=== PATIENT | male | born 1940 | race Caucasian/White ===

== ENCOUNTER 2017-12-01 19:29 | Inpatient (IN) | payer MEDICARE, OTHER ==
[2017-12-01 19:38] LABS: ADD MAN DIFF? NO
[2017-12-01 19:41] LABS: BASOPHIL # 0.1 10^3/ul (0.0-0.1); BASOPHILS % 0.4 % (0.0-2.0); EOSINOPHILS # 0.3 10^3/ul (0.0-0.5); EOSINOPHILS % 2.9 % (0.0-7.0); HEMATOCRIT 45.3 % (42.0-52.0); HEMOGLOBIN 14.3 g/dl (14.0-18.0); LYMPHOCYTES # 2.1 10^3/ul (0.8-2.9); MEAN CORPUSCULAR HEMOGLOBIN 26.4 pg (29.0-33.0); MEAN CORPUSCULAR HGB CONC 31.6 g/dl (32.0-37.0); MEAN CORPUSCULAR VOLUME 83.6 fl (82.0-101.0); MEAN PLATELET VOLUME 10.6 fl (7.4-10.4); MONOCYTE # 1.1 10^3/ul (0.3-0.9); MONOCYTES % 9.4 % (0.0-11.0); NEUTROPHILS % 68.9 % (39.0-77.0); PLATELET COUNT 231 10^3/UL (140-415); RED BLOOD COUNT 5.42 10^6/ul (4.70-6.10); RED CELL DISTRIBUTION WIDTH 16.6 % (11.5-14.5)
[2017-12-01 19:41] LABS: WHITE BLOOD COUNT 11.6 10^3/ul (4.8-10.8)
[2017-12-01] MEDS: MAGNESIUM SULFATE 2 GM/50 ML 50 ML IVPB (19:47)
[2017-12-01] MEDS: ASPIRIN 325 MG TAB PO (19:47)
[2017-12-01 19:59] LABS: ANION GAP 12 (8-16); BLOOD UREA NITROGEN 33 mg/dl (7-20); CALCIUM 8.2 mg/dl (8.4-10.2); CARBON DIOXIDE 22 mmol/L (21-31); CHLORIDE 112 mmol/L (97-110); CREATININE 3.03 mg/dl (0.61-1.24); GLUCOSE 119 mg/dl (70-220); MAGNESIUM 1.7 mg/dl (1.7-2.5); SODIUM 143 mmol/L (135-144)
[2017-12-01 20:06] LABS: POTASSIUM 2.9 mmol/L (3.5-5.1)
[2017-12-01 20:11] LABS: B-TYPE NATRIURETIC PEPTIDE 8260 PG/ML (0-450); TROPONIN-I 0.056 ng/ml (0.000-0.120)
[2017-12-01] MEDS: ALBUTEROL 0.083% (NEB) 2.5 MG/3 ML AMP HHN (20:31)
[2017-12-01] MEDS: POTASSIUM CHLORIDE (SR) 20 MEQ TAB PO ×2 (20:38)
[2017-12-01 20:41] LABS: AADO2 Arterial 594.3 mmHg (7.0-24.0); Arterial Base Excess -1.7 mmol/L (-3.0-3); Arterial Blood Gas Oxygen Sat 93.9 mmHG (95.0-100.0); Arterial COHb 1.4 % (0.0-3.0); Arterial Fraction of Oxyhgb 92.3 % (93.0-99.0); Arterial HCO3 23.7 mmol/L (22.0-26.0); Arterial MetHb 0.3 % (0.0-1.5); Arterial Total Hemglobin 14.9 g/dl (12.0-18.0); Arterial pCO2 42.7 mmhg (35-45); MODE NRM; Site Right Brachial
[2017-12-01] MEDS: FUROSEMIDE 40 MG INJ IV (20:41)
[2017-12-01] MEDS ORDERED: NACL 0.9% 3 ML SYG IV (22:30)
[2017-12-01] MEDS ORDERED: ACETAMINOPHEN 325 MG TAB PO (22:30)
[2017-12-01] MEDS ORDERED: DOCUSATE SODIUM 100 MG CAP PO (22:30)
[2017-12-01] MEDS ORDERED: morphine 2 MG INJ IV (22:30)
[2017-12-01] MEDS ORDERED: ZOLPIDEM 5 MG TAB PO (22:30)
[2017-12-01] MEDS ORDERED: ALBUTEROL/IPRATROPIUM (NEB) 3 ML AMP HHN (22:30)
[2017-12-01] MEDS ORDERED: ONDANSETRON 4 MG INJ IV (22:30)
[2017-12-01] MEDS ORDERED: MAGNESIUM HYDROXIDE 30ML CUP PO (22:30)
[2017-12-02 01:42] LABS: CREATINE KINASE 78 IU/L (23-200)
[2017-12-02 01:54] LABS: CK-MB 0.77 ng/ml (0.0-2.4); TROPONIN-I 0.083 ng/ml (0.000-0.120)
[2017-12-02 07:42] LABS: ADD MAN DIFF? NO
[2017-12-02 07:48] LABS: BASOPHILS % 0.4 % (0.0-2.0); EOSINOPHILS # 0.5 10^3/ul (0.0-0.5); EOSINOPHILS % 5.6 % (0.0-7.0); HEMATOCRIT 44.8 % (42.0-52.0); HEMOGLOBIN 13.9 g/dl (14.0-18.0); LYMPHOCYTES # 1.7 10^3/ul (0.8-2.9); LYMPHOCYTES % 18.8 % (15.0-51.0); MEAN CORPUSCULAR HEMOGLOBIN 26.1 pg (29.0-33.0); MEAN CORPUSCULAR VOLUME 84.2 fl (82.0-101.0); MEAN PLATELET VOLUME 10.1 fl (7.4-10.4); MONOCYTE # 0.9 10^3/ul (0.3-0.9); MONOCYTES % 9.8 % (0.0-11.0); NEUTROPHIL # 5.9 10^3/ul (1.6-7.5); NEUTROPHILS % 65.2 % (39.0-77.0); PLATELET COUNT 208 10^3/UL (140-415); RED BLOOD COUNT 5.32 10^6/ul (4.70-6.10); RED CELL DISTRIBUTION WIDTH 16.3 % (11.5-14.5)
[2017-12-02 07:48] LABS: WHITE BLOOD COUNT 9.1 10^3/ul (4.8-10.8)
[2017-12-02 08:00] LABS: HEMOGLOBIN A1C 6.2 % (0-5.9)
[2017-12-02 08:12] LABS: ANION GAP 11 (8-16); BLOOD UREA NITROGEN 34 mg/dl (7-20); CALCIUM 8.6 mg/dl (8.4-10.2); CARBON DIOXIDE 25 mmol/L (21-31); CHLORIDE 112 mmol/L (97-110); CHOL/HDL RATIO 3.1 RATIO; CHOLESTEROL 94 mg/dl (100-200); CREATININE 2.79 mg/dl (0.61-1.24); GLUCOSE 92 mg/dl (70-220); HDL CHOLESTEROL 30 mg/dl (31-75); LDL CHOLESTEROL,CALCULATED 52 mg/dl; MAGNESIUM 2.2 mg/dl (1.7-2.5); PHOSPHORUS 5.4 mg/dl (2.5-4.9); POTASSIUM 3.4 mmol/L (3.5-5.1); SODIUM 145 mmol/L (135-144); TRIGLYCERIDES 60 mg/dl (0-149)
[2017-12-02] MEDS: FUROSEMIDE 40 MG INJ IV (09:07)
[2017-12-02] MEDS: ATORVASTATIN 20 MG TAB PO (09:07)
[2017-12-02] MEDS: ASPIRIN (EC) 81 MG TAB PO (09:09)
[2017-12-02] MEDS: ALLOPURINOL 100 MG TAB PO ×3 (09:09→21:20)
[2017-12-02] MEDS: AMLODIPINE 5 MG TAB PO (09:09)
[2017-12-02] MEDS: MELOXICAM 15 MG TAB PO (09:09)
[2017-12-02] MEDS: FLUTICASONE/VILANTEROL 100-25 INH (09:11)
[2017-12-02] MEDS: TIOTROPIUM 18 MCG CAPSULE INHA DEV INH (09:11)
[2017-12-02] MEDS: HYDROCODONE/APAP (5/325) TAB PO (09:14)
[2017-12-02 10:09] LABS: CREATINE KINASE 80 IU/L (23-200)
[2017-12-02 10:22] LABS: CK INDEX 1.2; CK-MB 0.92 ng/ml (0.0-2.4); TROPONIN-I 0.053 ng/ml (0.000-0.120)
[2017-12-02] MEDS: POTASSIUM CHLORIDE (SR) 10 MEQ TAB PO (13:37)
[2017-12-02] MEDS ORDERED: morphine LIQ (10 MG/5 ML) CUP PO (17:30)
[2017-12-02] MEDS: ALBUTEROL/IPRATROPIUM (NEB) 3 ML AMP HHN (19:52)
[2017-12-02 21:02] LABS: ADD UMIC YES; UR ASCORBIC ACID NEGATIVE (NEGATIVE); UR BACTERIA FEW /HPF (NONE SEEN); UR BILIRUBIN (Dip) NEGATIVE (NEGATIVE); UR BLOOD (Dip) NEGATIVE (NEGATIVE); UR CLARITY CLEAR (CLEAR); UR COLOR STRAW (YELLOW); UR GLUCOSE (Dip) NEGATIVE (NEGATIVE); UR KETONES (Dip) NEGATIVE (NEGATIVE); UR LEUKOCYTE ESTERASE (Dip) TRACE Leu/ul (NEGATIVE); UR NITRITE (Dip) NEGATIVE (NEGATIVE); UR RBC 0 /HPF (0-5); UR SPECIFIC GRAVITY (Dip) 1.006 (1.003-1.030); UR TOTAL PROTEIN (Dip) NEGATIVE (NEGATIVE); UR UROBILINOGEN (Dip) NEGATIVE (NEGATIVE); UR WBC 0 /HPF (0-5)
[2017-12-02] MEDS: GABAPENTIN 300 MG CAP PO (21:44)
[2017-12-03 07:49] LABS: ADD MAN DIFF? NO
[2017-12-03 07:59] LABS: BASOPHILS % 0.3 % (0.0-2.0); EOSINOPHILS # 0.7 10^3/ul (0.0-0.5); EOSINOPHILS % 8.1 % (0.0-7.0); HEMATOCRIT 41.6 % (42.0-52.0); HEMOGLOBIN 12.9 g/dl (14.0-18.0); LYMPHOCYTES # 1.3 10^3/ul (0.8-2.9); MEAN CORPUSCULAR HEMOGLOBIN 26.2 pg (29.0-33.0); MEAN CORPUSCULAR VOLUME 84.6 fl (82.0-101.0); MONOCYTE # 0.9 10^3/ul (0.3-0.9); MONOCYTES % 9.9 % (0.0-11.0); NEUTROPHIL # 5.8 10^3/ul (1.6-7.5); NEUTROPHILS % 66.5 % (39.0-77.0); PLATELET COUNT 211 10^3/UL (140-415); RED BLOOD COUNT 4.92 10^6/ul (4.70-6.10); RED CELL DISTRIBUTION WIDTH 16.2 % (11.5-14.5)
[2017-12-03 07:59] LABS: WHITE BLOOD COUNT 8.7 10^3/ul (4.8-10.8)
[2017-12-03] MEDS: ALBUTEROL/IPRATROPIUM (NEB) 3 ML AMP HHN ×3 (08:24→19:13)
[2017-12-03 08:32] LABS: ANION GAP 11 (8-16); BLOOD UREA NITROGEN 27 mg/dl (7-20); CALCIUM 8.7 mg/dl (8.4-10.2); CARBON DIOXIDE 28 mmol/L (21-31); CHLORIDE 111 mmol/L (97-110); CREATININE 1.99 mg/dl (0.61-1.24); GLUCOSE 79 mg/dl (70-220); POTASSIUM 4.4 mmol/L (3.5-5.1); SODIUM 146 mmol/L (135-144)
[2017-12-03] MEDS: AMLODIPINE 5 MG TAB PO (09:00)
[2017-12-03] MEDS: GABAPENTIN 300 MG CAP PO ×3 (09:26→20:11)
[2017-12-03] MEDS: ALLOPURINOL 100 MG TAB PO ×3 (09:26→20:11)
[2017-12-03] MEDS: ASPIRIN (EC) 81 MG TAB PO (09:26)
[2017-12-03] MEDS: MELOXICAM 15 MG TAB PO (09:26)
[2017-12-03] MEDS: ATORVASTATIN 20 MG TAB PO (09:26)
[2017-12-03] MEDS: FLUTICASONE/VILANTEROL 100-25 INH (09:27)
[2017-12-03] MEDS: TIOTROPIUM 18 MCG CAPSULE INHA DEV INH (09:28)
[2017-12-03] MEDS: FUROSEMIDE 40 MG INJ IV (09:29)
[2017-12-04] MEDS: ALBUTEROL/IPRATROPIUM (NEB) 3 ML AMP HHN ×3 (08:00→20:03)
[2017-12-04 08:44] LABS: Allen Test ACCEPTAB; Arterial Base Excess 2.8 mmol/L (-3.0-3); Arterial Blood Gas Oxygen Sat 92.5 mmHG (95.0-100.0); Arterial COHb 1.7 % (0.0-3.0); Arterial Fraction of Oxyhgb 90.8 % (93.0-99.0); Arterial MetHb 0.1 % (0.0-1.5); Arterial Total Hemglobin 14.3 g/dl (12.0-18.0); Arterial pCO2 45.2 mmhg (35-45); MODE MASK - SIMPLE; Site Right Radial
[2017-12-04] MEDS: ALLOPURINOL 100 MG TAB PO ×3 (09:07→20:36)
[2017-12-04] MEDS: ASPIRIN (EC) 81 MG TAB PO (09:07)
[2017-12-04] MEDS: MELOXICAM 15 MG TAB PO (09:07)
[2017-12-04] MEDS: AMLODIPINE 5 MG TAB PO (09:07)
[2017-12-04] MEDS: GABAPENTIN 300 MG CAP PO ×3 (09:07→20:36)
[2017-12-04] MEDS: ATORVASTATIN 20 MG TAB PO (09:07)
[2017-12-04] MEDS: TIOTROPIUM 18 MCG CAPSULE INHA DEV INH (09:08)
[2017-12-04] MEDS: FUROSEMIDE 40 MG INJ IV (09:08)
[2017-12-04] MEDS: FLUTICASONE/VILANTEROL 100-25 INH (09:08)
[2017-12-04 09:34] LABS: ADD MAN DIFF? NO
[2017-12-04 09:53] LABS: AADO2 Arterial 263.6 mmHg (7.0-24.0)
[2017-12-04 10:15] LABS: ANION GAP 11 (8-16); BLOOD UREA NITROGEN 24 mg/dl (7-20); CARBON DIOXIDE 23 mmol/L (21-31); CHLORIDE 112 mmol/L (97-110); CREATININE 1.71 mg/dl (0.61-1.24); GLUCOSE 75 mg/dl (70-220); PHOSPHORUS 3.3 mg/dl (2.5-4.9); POTASSIUM 4.5 mmol/L (3.5-5.1); SODIUM 141 mmol/L (135-144)
[2017-12-04 11:31] LABS: WHITE BLOOD COUNT 9.8 10^3/ul (4.8-10.8)
[2017-12-04 11:31] LABS: BASOPHILS % 0.3 % (0.0-2.0); EOSINOPHILS # 0.7 10^3/ul (0.0-0.5); EOSINOPHILS % 6.7 % (0.0-7.0); HEMATOCRIT 46.2 % (42.0-52.0); HEMOGLOBIN 14.4 g/dl (14.0-18.0); LYMPHOCYTES # 1.2 10^3/ul (0.8-2.9); LYMPHOCYTES % 12.1 % (15.0-51.0); MEAN CORPUSCULAR HEMOGLOBIN 26.5 pg (29.0-33.0); MEAN CORPUSCULAR HGB CONC 31.2 g/dl (32.0-37.0); MEAN CORPUSCULAR VOLUME 85.1 fl (82.0-101.0); MEAN PLATELET VOLUME 10.8 fl (7.4-10.4); MONOCYTE # 0.9 10^3/ul (0.3-0.9); MONOCYTES % 8.9 % (0.0-11.0); NEUTROPHILS % 71.8 % (39.0-77.0); PLATELET COUNT 231 10^3/UL (140-415); RED BLOOD COUNT 5.43 10^6/ul (4.70-6.10); RED CELL DISTRIBUTION WIDTH 15.9 % (11.5-14.5)
[2017-12-04 13:11] LABS: FREE T4 (FREE THYROXINE) 0.94 ng/dl (0.78-2.44)
[2017-12-05] MEDS: ALBUTEROL/IPRATROPIUM (NEB) 3 ML AMP HHN ×3 (08:22→20:19)
[2017-12-05] MEDS: FLUTICASONE/VILANTEROL 100-25 INH (09:00)
[2017-12-05] MEDS: TIOTROPIUM 18 MCG CAPSULE INHA DEV INH (09:00)
[2017-12-05 09:26] LABS: ADD MAN DIFF? NO
[2017-12-05 09:36] LABS: BASOPHILS % 0.3 % (0.0-2.0); EOSINOPHILS # 0.6 10^3/ul (0.0-0.5); EOSINOPHILS % 6.8 % (0.0-7.0); HEMATOCRIT 44.7 % (42.0-52.0); HEMOGLOBIN 14.3 g/dl (14.0-18.0); LYMPHOCYTES # 1.5 10^3/ul (0.8-2.9); LYMPHOCYTES % 16.9 % (15.0-51.0); MEAN CORPUSCULAR HEMOGLOBIN 26.6 pg (29.0-33.0); MEAN CORPUSCULAR VOLUME 83.1 fl (82.0-101.0); MEAN PLATELET VOLUME 10.2 fl (7.4-10.4); MONOCYTE # 0.9 10^3/ul (0.3-0.9); NEUTROPHIL # 5.9 10^3/ul (1.6-7.5); NEUTROPHILS % 65.9 % (39.0-77.0); PLATELET COUNT 230 10^3/UL (140-415); RED BLOOD COUNT 5.38 10^6/ul (4.70-6.10); RED CELL DISTRIBUTION WIDTH 15.9 % (11.5-14.5)
[2017-12-05 10:08] LABS: PHOSPHORUS 3.1 mg/dl (2.5-4.9)
[2017-12-05 10:08] LABS: MAGNESIUM 1.8 mg/dl (1.7-2.5)
[2017-12-05 10:11] LABS: ANION GAP 15 (8-16); BLOOD UREA NITROGEN 22 mg/dl (7-20); CALCIUM 9.1 mg/dl (8.4-10.2); CARBON DIOXIDE 27 mmol/L (21-31); CHLORIDE 107 mmol/L (97-110); CREATININE 1.64 mg/dl (0.61-1.24); GLUCOSE 94 mg/dl (70-220); POTASSIUM 4.2 mmol/L (3.5-5.1); SODIUM 145 mmol/L (135-144)
[2017-12-05] MEDS: FUROSEMIDE 40 MG INJ IV (10:12)
[2017-12-05] MEDS: ATORVASTATIN 20 MG TAB PO (10:12)
[2017-12-05] MEDS: GABAPENTIN 300 MG CAP PO ×3 (10:13→21:02)
[2017-12-05] MEDS: ALLOPURINOL 100 MG TAB PO ×3 (10:13→21:02)
[2017-12-05] MEDS: MELOXICAM 15 MG TAB PO (10:13)
[2017-12-05] MEDS: AMLODIPINE 5 MG TAB PO (10:13)
[2017-12-05] MEDS: ASPIRIN (EC) 81 MG TAB PO (10:13)
[2017-12-05] MEDS: APIXABAN 5 MG TABLET PO (21:02)
[2017-12-06 07:36] LABS: ADD MAN DIFF? NO
[2017-12-06 07:40] LABS: BASOPHILS % 0.3 % (0.0-2.0); EOSINOPHILS # 0.6 10^3/ul (0.0-0.5); EOSINOPHILS % 6.7 % (0.0-7.0); HEMATOCRIT 45.8 % (42.0-52.0); HEMOGLOBIN 14.4 g/dl (14.0-18.0); LYMPHOCYTES # 1.4 10^3/ul (0.8-2.9); LYMPHOCYTES % 16.1 % (15.0-51.0); MEAN CORPUSCULAR HEMOGLOBIN 26.5 pg (29.0-33.0); MEAN CORPUSCULAR HGB CONC 31.4 g/dl (32.0-37.0); MEAN CORPUSCULAR VOLUME 84.2 fl (82.0-101.0); MEAN PLATELET VOLUME 10.1 fl (7.4-10.4); MONOCYTE # 1.1 10^3/ul (0.3-0.9); NEUTROPHIL # 5.7 10^3/ul (1.6-7.5); NEUTROPHILS % 64.7 % (39.0-77.0); PLATELET COUNT 236 10^3/UL (140-415); RED BLOOD COUNT 5.44 10^6/ul (4.70-6.10); RED CELL DISTRIBUTION WIDTH 15.9 % (11.5-14.5)
[2017-12-06 07:40] LABS: WHITE BLOOD COUNT 8.8 10^3/ul (4.8-10.8)
[2017-12-06] MEDS: ATORVASTATIN 20 MG TAB PO (08:14)
[2017-12-06] MEDS: FUROSEMIDE 40 MG INJ IV (08:14)
[2017-12-06] MEDS: GABAPENTIN 300 MG CAP PO ×2 (08:15→12:24)
[2017-12-06] MEDS: APIXABAN 5 MG TABLET PO (08:15)
[2017-12-06] MEDS: ALLOPURINOL 100 MG TAB PO ×2 (08:15→12:24)
[2017-12-06] MEDS: ASPIRIN (EC) 81 MG TAB PO (08:15)
[2017-12-06] MEDS: MELOXICAM 15 MG TAB PO (08:17)
[2017-12-06] MEDS: ALBUTEROL/IPRATROPIUM (NEB) 3 ML AMP HHN ×2 (08:21→13:44)
[2017-12-06 08:22] LABS: CREATINE KINASE 95 IU/L (23-200)
[2017-12-06 08:25] LABS: MAGNESIUM 1.8 mg/dl (1.7-2.5)
[2017-12-06 08:25] LABS: PHOSPHORUS 3.5 mg/dl (2.5-4.9)
[2017-12-06] MEDS: FLUTICASONE/VILANTEROL 100-25 INH (08:26)
[2017-12-06 08:29] LABS: ANION GAP 12 (8-16); BLOOD UREA NITROGEN 21 mg/dl (7-20); CALCIUM 9.3 mg/dl (8.4-10.2); CARBON DIOXIDE 29 mmol/L (21-31); CHLORIDE 107 mmol/L (97-110); CREATININE 1.72 mg/dl (0.61-1.24); GLUCOSE 89 mg/dl (70-220); POTASSIUM 4.7 mmol/L (3.5-5.1); SODIUM 143 mmol/L (135-144)
[2017-12-06 08:34] LABS: CK INDEX 0.5; CK-MB 0.49 ng/ml (0.0-2.4); TROPONIN-I 0.018 ng/ml (0.000-0.120)
[2017-12-06] MEDS: DILTIAZEM (CD) 120 MG CAP PO (09:00)
[2017-12-06] MEDS: TIOTROPIUM 18 MCG CAPSULE INHA DEV INH (12:23)
[2017-12-06] MEDS: MAGNESIUM CHLORIDE (SR) 64 MG TAB PO (17:40)
== END 2017-12-06 17:46 | disposition home health service (06) | DRG 291 ==
LOC: E/R 19:29 → MS4 21:32
DX: I13.0 Hypertensive heart and chronic kidney disease with heart failure and stage 1 through stage 4 chronic kidney disease, or unspecified chronic kidney disease (principal); J96.21 Acute and chronic respiratory failure with hypoxia; I50.33 Acute on chronic diastolic (congestive) heart failure; N17.9 Acute kidney failure, unspecified; J44.1 Chronic obstructive pulmonary disease with (acute) exacerbation; J44.0 Chronic obstructive pulmonary disease with (acute) lower respiratory infection; N18.9 Chronic kidney disease, unspecified; E11.22 Type 2 diabetes mellitus with diabetic chronic kidney disease; E66.01 Morbid (severe) obesity due to excess calories; Z68.36 Body mass index [BMI] 36.0-36.9, adult; E87.6 Hypokalemia; Z87.891 Personal history of nicotine dependence; I48.0 Paroxysmal atrial fibrillation; J20.9 Acute bronchitis, unspecified; I27.20 Pulmonary hypertension, unspecified
CPT/HCPCS: 36415; 36600; 71045; 76775; 80048; 80061; 81001; 82550; 82553; 82803; 83036; 83735; 83880; 84100; 84439; 84443; 84484; 85025; 93005; 93306; 94640; 94664; 96374; 97110; 97116; 97163; 97530; 99285-25